=== PATIENT | female | born 1980 | race Caucasian/White ===

== ENCOUNTER 2017-02-07 11:56 | Emergency (ER) | payer MEDICARE, MEDICAID ==
[2015-01-06 12:42] VITALS: BMI 46.8
[~2017-02-07 11:56] MED LIST: CLINDAMAX TOPICAL; ERRIN0.35 MG PO; GEODON60 MG PO; LITHIUM CARBON300 MG PO; LOPID600 MG PO; NIASPAN500 MG PO; PAXIL20 MG PO
== END 2017-02-07 13:28 | disposition left against medical advice (07) ==
LOC: D.ER 11:56
DX: R51 Headache (principal)

== ENCOUNTER 2017-03-04 22:00 | Emergency (ER) | payer MEDICARE | END 2017-03-05 01:44 | disposition home or self-care (01) | LOC: D.ER 22:00 | DX: M94.262 Chondromalacia, left knee (principal); F17.200 Nicotine dependence, unspecified, uncomplicated; F31.9 Bipolar disorder, unspecified ==

== ENCOUNTER → 2017-06-26 09:37 | Outpatient (CLI) | payer SELFPAY ==
[2015-01-06 12:42] VITALS: BMI 46.8
--- NOTE | 2017-06-26 12:08 | NUR ---
Nutrition education for bariatric surgery: S: Pt states she was unable to lose weight after having her two children. Pt states she makes very poor food choices due to being on a very limited budget. However, pt did smoke until recently. Pt states she and her boyfreind buy mostly frozen burritos, canned chili and other highly processed foods because they are cheaper. Pt states she lost ~25# following a 1500 kcal diet but was unable to keep the weight off due to the cost of the food. Pt is taking anti-psychotic drugs which also can cause weight gain. Pt is drinking soda and some water. Pt does not exercise at this time. O: 36 year old female PMH: Fatty liver disease, asthma, OA of the knee, hypertryglecerimia, O2 dependent at night Ht: 5'6" Wt: 299# IBW: 130# +/-10% BMI: 48.3 A: Reviewed pre/post op diet progression. Discussed liquids between meals only; no carbonated drinks, no alcohol, no straws, no sweets or high fat foods; dumping syndrome; daily multivitamin mineral supplements; pouch stretching; stomach size; protein requirements and protein supplement guidelines. Reviewed sample menus for all diet phases. Provided pt with homework to start working on before surgery. Pt with good understanding of information provided. Pt with realistic expectations for weight loss. Pts goal weight post surgery is 170-200#. Pt verbalizes understanding of diet changes needed postprocedure to help with long-term weight loss success. However, pt may not be very motivated to make the necessary changes needed to be successful with long-term weight loss. RDN feels pts motivation for change is fair at best. P: Provided pt with printed diet information and RDN name and phone number. RDN will be available if needed. Thank you for the consult.
== END ==
LOC: D.FANS 09:37
DX: Z01.818 Encounter for other preprocedural examination (principal)

== ENCOUNTER → 2017-08-17 10:18 | Outpatient (CLI) | payer MEDICARE ==
[2015-01-06 12:42] VITALS: BMI 46.8
== END | disposition home or self-care (01) ==
LOC: D.RAD 10:18
DX: E66.01 Morbid (severe) obesity due to excess calories (principal)

== ENCOUNTER 2017-08-27 06:09 | Day surgery (SDC) | payer MEDICARE ==
[2017-08-27] MEDS ORDERED: GEODON20 MG PO (06:44)
[2017-08-27] MEDS ORDERED: HYDROXYZINE HCL50 MG PO (06:45)
[2017-08-27] MEDS ORDERED: CLARITIN 10 MG10 MG PO (06:46)
[2017-08-27] MEDS ORDERED: MUCINEX600 MG PO (06:46)
[2017-08-27] MEDS ORDERED: PREVACID30 MG PO (06:47)
[2017-08-27] MEDS ORDERED: SINGULAIR10 MG PO (06:47)
[2017-08-27] MEDS ORDERED: FIBER-TABS625 MG PO (06:48)
[2017-08-27 06:54] VITALS: BMI 31.3
[2017-08-27 07:08] LABS: BASOPHILS 0.2 % (0-2); HEMATOCRIT 37.4 % (36.0-48.0); HEMOGLOBIN 12.4 g/dL (12-16); IMMATURE GRANULOCYTES 0.7 % (0-5); LYMPHOCYTES 25.6 % (15-50); MCHC 33.2 g/dL (31.0-37.0); MCV 93.5 fL (80.0-100.0); MEAN PLATELET VOLUME 9.6 fL (7.4-10.4); MONOCYTES 6.3 % (2-11); NEUTROPHILS 64.2 % (40-80); PLATELET COUNT 470 10x3/uL (130-400); WBC 9.4 10x3/uL (4.8-10.8)
[2017-08-27 07:34] LABS: ALBUMIN 3.1 g/dL (3.4-5.0); ANION GAP 10.4 mmol/L (8-16); BILIRUBIN - DIRECT 0.05 mg/dL (0.00-0.30); BILIRUBIN - INDIRECT 0.21 mg/dL (0.00-1.00); BILIRUBIN - TOTAL 0.26 mg/dL (0.2-1.3); CALCIUM 9.2 mg/dL (8.5-10.1); CARBON DIOXIDE 28.6 mmol/L (21.0-32.0); CHOL - HDL RATIO 4.5 ratio (2.3-4.1); LDL-HDL RATIO 2.6 ratio (1.5-3.5); PROTEIN - SERUM 7.1 g/dL (6.4-8.2); T4 THYROXINE 6.7 ug/dL (4.7-13.3); THYROID STIMULATING HORMONE 2.26 uIU/mL (0.36-3.74)
[2017-08-27 07:56] LABS: APTT 31.3 SECONDS (22.8-39.4); INR 0.88 (0.85-1.17); PROTIME 11.7 SECONDS (11.6-15.0)
[2017-08-27 08:21] LABS: HELICOBACTER PYLORI IGG NEGATIVE (NEGATIVE)
--- NOTE | 2017-08-27 09:43 | NUR ---
IV D/C'D CATH INTACT. D/C INSTRUCTIONS EXPLAINED TO PT. VOICED UNDERSTANDING. COPIES OF ALL GIVEN, WELL F/U APPT WITH DR. MEREDITH 1017 @9:15
[2017-08-28 08:18] LABS: FOLATE (FOLIC ACID) - SERUM 12.4 ng/mL (>3.0)
[2017-10-26] MEDS ORDERED: MULTIPLE VITAMI1 TA1 PO (10:05)
== END 2017-08-27 09:50 | disposition home or self-care (01) ==
LOC: D.OPS 06:09
PROVIDERS: Surgery
DX: K21.0 Gastro-esophageal reflux disease with esophagitis (principal); K29.50 Unspecified chronic gastritis without bleeding; E66.9 Obesity, unspecified; Z68.42 Body mass index [BMI] 45.0-49.9, adult; E78.2 Mixed hyperlipidemia; G47.33 Obstructive sleep apnea (adult) (pediatric); Z01.812 Encounter for preprocedural laboratory examination

== ENCOUNTER → 2017-09-27 08:54 | Outpatient (CLI) | payer MEDICARE ==
[~2017-09-27 08:54] MED LIST changes: +CLARITIN 10 MG10 MG PO; +FIBER-TABS625 MG PO; +GEODON20 MG PO; +HYDROCODON-ACE1 EAC7 PO; +HYDROXYZINE HCL50 MG PO; +MUCINEX600 MG PO; +MULTIPLE VITAMI1 TA1 PO; +PREVACID30 MG PO; +SINGULAIR10 MG PO
== END | disposition home or self-care (01) ==
LOC: D.NM 09-20 11:30
DX: E66.01 Morbid (severe) obesity due to excess calories (principal)

== ENCOUNTER 2017-10-08 23:23 | Emergency (ER) | payer MEDICARE ==
[~2017-10-08 23:23] MED LIST changes: -HYDROCODON-ACE1 EAC7 PO; -MULTIPLE VITAMI1 TA1 PO
[2017-10-26] MEDS ORDERED: MULTIPLE VITAMI1 TA1 PO (10:05)
== END 2017-10-09 00:10 | disposition home or self-care (01) ==
LOC: D.ER 23:23
DX: L51.9 Erythema multiforme, unspecified (principal)

== ENCOUNTER 2017-10-29 06:29 | Inpatient (IN) | payer MEDICARE ==
[2017-10-26 11:05] LABS: HEMATOCRIT 39.2 % (36.0-48.0); HEMOGLOBIN 13.2 g/dL (12-16); MCH 29.3 pg (26.0-34.0); MCHC 33.7 g/dL (31.0-37.0); MCV 87.1 fL (80.0-100.0); MEAN PLATELET VOLUME 8.8 fL (7.4-10.4); RBC 4.5 10x6/uL (4.00-5.40); RDW 12.4 % (11.5-14.5); WBC 11.8 10x3/uL (4.8-10.8)
[2017-10-26 11:12] LABS: APTT 28.9 SECONDS (22.8-39.4); INR 0.88 (0.85-1.17); PROTIME 11.6 SECONDS (11.6-15.0)
[2017-10-26 11:17] LABS: ALBUMIN 3.3 g/dL (3.4-5.0); ANION GAP 10.4 mmol/L (8-16); BILIRUBIN - TOTAL 0.16 mg/dL (0.2-1.3); CALCIUM 9.1 mg/dL (8.5-10.1); CREATININE - SERUM 0.9 mg/dL (0.6-1.3); POTASSIUM - SERUM 4.4 mmol/L (3.5-5.1); PROTEIN - SERUM 7.7 g/dL (6.4-8.2)
[~2017-10-29] VITALS: Ht 167.6 cm; Wt 141.8 kg
[~2017-10-29 06:29] MED LIST changes: +MULTIPLE VITAMI1 TA1 PO
[2017-10-29 10:46] VITALS: BP 143/75; BMI 50.4
--- NOTE | 2017-10-29 16:27 | NUR ---
ASKED PT IS SHE IS HAVING ANY PAIN. PT VOICED "6/10" ON NUMERIC SCALE. I HAVE ALREADY GIVEN DEMERAL 25MG FOR SHIVERING, BUT IT ALSO HELPS PAIN RECEPTORS. PT OXGYEN SATURATION IS 93% ON 3L NC. I VOICED TO THE PATIENT THAT DUE TO HER OXYGEN SATURATION BEING LOWER THAN THE DESIRED 94%, THAT I WAS GOING TO ALLOW FOR HER TO WAKE UP MORE BEFORE I GIVE HER ANY PAINMEDICINE, BECASUSE IT CAN CAUSE HER TO BREATH SWALLOWER AND FURTHER CAUSE RESPIRTORY DEPRESSION. PT SHOOK HER HEAD YES THAT SHE UNDERSTOOD. WILL CONITNUE TO MONITOR PT OXYGEN SATURATION AND PAIN.
[2017-10-29 17:30] VITALS: BP 122/59
--- NOTE | 2017-10-29 17:30 | NUR ---
RECEIVED TO ROOM 2213 FROM RECOVERY ROOM VIA BED. ORIENTED TO ROOM AND CALL LIGHT SYSTEM. FAMILY IN ROOM. CALL LIGHT IN REACH. WILL CONTINUE WITH PLAN OF CARE.
--- NOTE | 2017-10-29 17:50 | NUR ---
MORPHINE ERECTION SHOP SUPERVISOR INITIATED WITH SETTINGS OF 12/05/09 PER MD ORDER. EXPLAINED TO PATIENT HOW TO USE ERECTION SHOP SUPERVISOR. VERBALIZED UNDERSTANDING. INSTRUCTED PATIENT TO TAKE 30 CC OF ORAL FLUIDS PER HOUR AND NOT TO USE STRAWS OR HAVE CARBONATED DRINKS. I ALSO EXPLAINED THIS TO THE FAMILY WELL. ALL VERBALIZED UNDERSTANDING. MEASURING CUP GIVEN TO PATIENT AT THIS TIME. CALL LIGHT IN REACH. WILL CONTINUE WITH PLAN OF CARE.
--- NOTE | 2017-10-29 18:39 | NUR ---
ASSESSMENT PER FLOW SHEET.PT WITHOUT DISTRESS.CALL LIGHT IN REACH
[2017-10-29 18:41] VITALS: BP 122/59; Ht 167.6 cm; Wt 141.8 kg
--- NOTE | 2017-10-29 18:57 | NUR ---
SCDs APPLIED TO BLE PER MD ORDER. INCENTIVE SPIROMETER GIVEN TO PATIENT AND INSTRUCTED ON USE WITH RETURN DEMONSTRATION. NO OTHER CHANGES IN INITIAL ASSESSMENT. CALL LIGHT IN REACH. WILL CONTINUE WITH PLAN OF CARE.
[2017-10-29 20:00] VITALS: BP 125/73
--- NOTE | 2017-10-29 20:33 | OP ---
PATIENT NAME: HAYLEY LUNA MEDICAL RECORD: [id number] :78 LOCATION:[facility] ADMISSION DATE:10/29/17 SURGEON: JOSUÉ MEREDITH MD DATE OF OPERATION: 10/29/2017 DATE OF OPERATION: 10/29/2017 SURGEON: Josué Meredith MD [employer] DEPUTY DIRECTOR SURGEON: Raj Wiggins MD PREOPERATIVE DIAGNOSES: 1. Morbid obesity. 2. Essential hypertension. 3. Mixed hyperlipidemia. 4. Body mass index 45-49.9. 5. Obstructive sleep apnea. 6. Gastroesophageal reflux disease. POSTOPERATIVE DIAGNOSES: 1. Morbid obesity. 2. Essential hypertension. 3. Mixed hyperlipidemia. 4. Body mass index 45-49.9. 5. Obstructive sleep apnea. 6. Gastroesophageal reflux disease. PROCEDURE PERFORMED: Laparoscopic vertical sleeve gastrectomy. ANESTHESIA: General. COMPLICATIONS: None. SPECIMENS: Partial gastrectomy. ESTIMATED BLOOD LOSS: 40 cc. Case is clean contaminated. OPERATIVE COURSE: After consent was obtained, the patient was taken to the operating room and placed in the supine position on the operating table. Next, general anesthesia was given via endotracheal intubation. Next a timeout was performed to confirm the correct patient and procedure. Local anesthetic was injected just above the umbilicus. A stab incision was made with 11-blade scalpel using an 11-mm bladeless optical trocar. The abdomen was entered under direct laparoscopic vision. Adequate pneumoperitoneum was achieved. The abdominal cavity was inspected. No evidence of bowel injury. No evidence of bleeding. At this time, the patient was placed in the steep reverse Trendelenburg position. All remaining trocars were then placed after the administration of local anesthetic under direct laparoscopic vision; 12-mm and 5-mm trocar in the right lateral quadrants, two 5-mm trocars in the left lateral quadrants, and Alesia liver retractor in the subxiphoid position. The Alesia liver retractor was used to elevate the left lobe of the liver, exposing the gastroesophageal junction. The pylorus was identified. Starting 6 cm proximal to pylorus, the greater curvature of the stomach was mobilized. The OPERATIVE REPORT [id number] HAYLEY LUNA short gastrics were taken with Harmonic scalpel to the level of the left sarah. Once this was complete, the 40-Chinese ViSiGi bougie was passed transorally. Once in the stomach, it was advanced to the pylorus and placed to suction along the lesser curvature of the stomach. At this time, the gastric sleeve was created using the linear cutting LESLIE stapler with gold load josué. The stapler was fired along the length of the 40-Chinese ViSiGi device, approximately 6 staple loads were used. Once complete, the partial gastrectomy specimen was placed in the left lateral quadrant. The staple line was imbricated using a 3-0 Stratafix suture. Next, a bowel clamp was placed across the first portion of the duodenum. The upper abdomen was filled with saline irrigation. The ViSiGi device was used to insufflate the stomach. There was no evidence of leak. At this time, all remaining irrigation was suctioned from the abdomen. ViSiGi was placed back to suction. Once suction was complete, the ViSiGi device was removed. The abdominal cavity was then copiously irrigated and suctioned, it was inspected. There was no evidence of bowel injury and no evidence of bleeding. At this time, the Alesia liver retractor was removed. The partial gastrectomy specimen was grasped with the tenaculum and removed through the 12-mm trocar site and sent for permanent pathology. The 12-mm trocar site and 11-mm trocar site were then closed using the Morales-Radha suture passer under direct laparoscopic vision with 0 Vicryl suture. At this time, again the abdominal cavity was inspected with no evidence of bowel injury and no evidence of bleeding. All remaining instruments were removed. The abdomen was desufflated. Trocars were removed. Skin was closed with 4-0 Monocryl, Mastisol and Steri-Strips. At the end of the case, all needle and instrument counts were correct. No complications occurred. The patient was extubated and transferred to the PACU in stable condition. TRANSINT:[id number] Voice Confirmation ID: [id number] DOCUMENT ID: [id number] JOSUÉ MEREDITH MD at 2033 CC: [id number] DICTATION DATE: 10/29/17 161 PSYCHOLOGICAL OPERATIONS: 10/29/17 [address] [facility] [address] [place] [address]
--- NOTE | 2017-10-29 22:32 | NUR ---
PRN ZOFRAN AND MYLICON DROPS ADMINISTERED AT THIS TIME FOR GAS PAINS. PT AMBULATED TO THE BATHROOM WITH SP[employer]ING GOODS SALES MANAGER ASSISTANCE. STATES "THAT'S ALL I CAN DO RIGHT NOW." CALL LIGHT IN REACH, WILL CONTINUE WITH PLAN OF CARE.
[2017-10-30 04:00] VITALS: BP 131/68
--- NOTE | 2017-10-30 05:17 | NUR ---
PT OBSERVED AMBULATING IN HALLWAY WITH COLOR BUFFER. MADE ONE LAP AROUND FLOOR. NO DISTRESS NOTED.
[2017-10-30 07:25] LABS: BASOPHILS 0.1 % (0-2); EOSINOPHILS 0.1 % (0-7); HEMATOCRIT 35.6 % (36.0-48.0); HEMOGLOBIN 11.6 g/dL (12-16); IMMATURE GRANULOCYTES 0.3 % (0-5); LYMPHOCYTES 9.5 % (15-50); MCH 29.4 pg (26.0-34.0); MCHC 32.6 g/dL (31.0-37.0); MCV 90.1 fL (80.0-100.0); MEAN PLATELET VOLUME 9.6 fL (7.4-10.4); MONOCYTES 5.4 % (2-11); NEUTROPHILS 84.6 % (40-80); PLATELET COUNT 469 10x3/uL (130-400); RBC 3.95 10x6/uL (4.00-5.40); RDW 13.3 % (11.5-14.5); WBC 19.4 10x3/uL (4.8-10.8)
[2017-10-30 07:46] LABS: ALBUMIN 2.8 g/dL (3.4-5.0); ALKALINE PHOSPHATASE 78 U/L (46-116); ALT (SGPT) 43 U/L (10-68); BILIRUBIN - TOTAL 0.35 mg/dL (0.2-1.3); CALC OSMOLALITY 273 mosm/kg (275-300); CALCIUM 8.6 mg/dL (8.5-10.1); CARBON DIOXIDE 28.3 mmol/L (21.0-32.0); CHLORIDE - SERUM 104 mmol/L (98-107); CREATININE - SERUM 0.7 mg/dL (0.6-1.3); GLUCOSE 119 mg/dL (74-106); PROTEIN - SERUM 6.5 g/dL (6.4-8.2); SODIUM 137 mmol/L (136-145); UREA NITROGEN 10 mg/dL (7-18); eGFR NON AFRICAN AMERICAN > 90 mL/min (90-120)
--- NOTE | 2017-10-30 08:01 | NUR ---
AWAKE AND ALERT. ORIENTED X3. NO C/O THIS AM. LUNGS ARE CLEAR BILATERALLY, NO COUGH NOTED. SKIN IS INTACT WITHOUT REDNESS EXCEPT 4 SMALL INSERTION SITES TO ABDOMEN WHICH ARE CLEAN AND DRY. IV TO RIGHT AC IS PATENT WITHOUT REDNESS AT ISNERTION SITE. DENIES NEEDS. REPORTS VOIDING WITHOUT DIFFICULTY. OFF UNIT AT THIS TIME VIA WC FOR PROCEDURE.
[2017-10-30] MEDS ORDERED: HYDROCODON-ACE1 EAC7 PO (09:52)
--- NOTE | 2017-10-30 11:30 | NUR ---
REQUESTED IV BE D/C. DONE WITH CATHETER INTACT.
--- NOTE | 2017-10-30 13:40 | NUR ---
DISCHARGED TO HOME AMBULATORY WITH FAMILY. DISCHARGE INSTRUCTIONS GIVEN BOTH VERBALLY AND WRITTEN. ALL QUESTIONS ANSWERED. PATIENT VERBALIZED UNDERSTANDING OF SAME. NEEDED PRESCRIPTIONS GIVEN TO PATIENT. ALL BELONGINGS WITH PATIENT.
--- NOTE | 2017-11-15 08:23 | DS ---
PATIENT:HAYLEY LUNA :78 MEDICAL RECORD: [id number] DISCHARGE SUMMARY ADMISSION DATE: 10/29/17 DISCHARGE DATE: 10/30/17 DATE OF ADMISSION: 10/29/2017 DATE OF DISCHARGE: 10/30/2017 SURGEON: Josué Meredith MD ADMITTING PHYSICIAN: Josué Meredith MD DISCHARGE PHYSICIAN: Josué Meredith MD ADMITTING DIAGNOSES: 1. Morbid obesity. 2. Body mass index 45-49.9. 3. Essential hypertension. 4. Mixed hyperlipidemia. 5. Obstructive sleep apnea. HOSPITAL COURSE: The patient was admitted to the hospital for an elective laparoscopic vertical sleeve gastrectomy, which she tolerated well. Postoperatively, she was transferred to the floor and started on bariatric phase I clear liquid diet. On postoperative day 1, she went for Gastrografin swallow, which was within normal limits. She was advanced to a bariatric phase II clear liquid diet. At the time of discharge, her pain was well controlled on oral pain medicine. She was ambulating independently and voiding without difficulty. FOLLOWUP: With Dr. Meredith in 2 weeks. DISCHARGE DIET: Bariatric phase II full liquid diet for 2 weeks. WOUND CARE: The patient may shower, soap and water to the wound daily. DISCHARGE CONDITION: Stable. ACTIVITY: As tolerated. No restrictions. DISCHARGE MEDICATIONS: Please see electronic medical record for full list of discharge medications. TRANSINT:[id number] Voice Confirmation ID: [id number] DOCUMENT ID: [id number] JOSUÉ MEREDITH MD at 0823 CC: [id number] DICTATION DATE: 11/14/17 1549 PHARMACY LABORATORY TECHNICIAN: 11/15/17 0701 DIS IN 10/30/17 [facility] [address] [place] [id number]
--- NOTE | 2017-11-22 13:26 | OP ---
PATIENT NAME: HAYLEY LUNA MEDICAL RECORD: [id number] :78 LOCATION:[facility] ADMISSION DATE:10/29/17 SURGEON: DOREEN SALAZAR MD DATE OF OPERATION: 10/29/2017 This is an computer assistant's note. I assisted Dr. Jose Angel Jones with laparoscopic sleeve gastrectomy for morbid obesity. I scrubbed in after the trocars had been placed. I was present for all the critical portions of the case. I assisted with retraction of the stomach. I took down some of the short gastrics with the Harmonic scalpel. I dissected up to the left sarah. Bleeding was controlled with the Harmonic scalpel. I assisted with retraction of the stomach during insertion of the ViSiGi device. I assisted with retraction of the stomach while Dr. Jones divided the stomach. I then assisted with hemostasis in the left upper quadrant. I assisted him with suture retraction and imbricating sutures along the staple line. I ran the camera. I irrigated and aspirated. I assisted with closure of some of the trocar sites. I was present until last skin sutures had been placed. TRANSINT:[id number] Voice Confirmation ID: [id number] DOCUMENT ID: [id number] DOREEN SALAZAR MD at 1326 CC: [id number] DICTATION DATE: 10/29/17 1615 CROP ROLLER: 10/29/17 1829 DIS IN 10/30/17 [facility] [address] [place] [id number]
== END 2017-10-30 13:40 | disposition home or self-care (01) | DRG 621 ==
LOC: D.SDCHOLD 06:29 → D.MS 17:19
PROVIDERS: Anesthesiology; ADMIT Surgery
PROC: 0DB64Z3 Excision of Stomach, Percutaneous Endoscopic Approach, Vertical (ICD-10-PCS; principal; 2017-10-29 12:00)
DX: E66.01 Morbid (severe) obesity due to excess calories (principal); Z68.42 Body mass index [BMI] 45.0-49.9, adult; I10 Essential (primary) hypertension; E78.2 Mixed hyperlipidemia; G47.33 Obstructive sleep apnea (adult) (pediatric); K21.9 Gastro-esophageal reflux disease without esophagitis

== ENCOUNTER 2017-11-11 01:45 | Emergency (ER) | payer MEDICARE ==
[2017-10-29 18:41] VITALS: BMI 50.4
[~2017-11-11 01:45] MED LIST changes: +HYDROCODON-ACE1 EAC7 PO
[2017-11-11 02:40] LABS: BASOPHILS 0.2 % (0-2); EOSINOPHILS 1.9 % (0-7); HEMATOCRIT 40.4 % (36.0-48.0); HEMOGLOBIN 13.8 g/dL (12-16); IMMATURE GRANULOCYTES 0.5 % (0-5); LYMPHOCYTES 21.3 % (15-50); MCH 29.6 pg (26.0-34.0); MCHC 34.2 g/dL (31.0-37.0); MCV 86.5 fL (80.0-100.0); MEAN PLATELET VOLUME 9.7 fL (7.4-10.4); MONOCYTES 6.3 % (2-11); NEUTROPHILS 69.8 % (40-80); PLATELET COUNT 538 10x3/uL (130-400); RBC 4.67 10x6/uL (4.00-5.40); RDW 13.1 % (11.5-14.5); WBC 15.1 10x3/uL (4.8-10.8)
[2017-11-11 03:02] LABS: CALC OSMOLALITY 273 mosm/kg (275-300); CALCIUM 9.5 mg/dL (8.5-10.1); CHLORIDE - SERUM 99 mmol/L (98-107); CREATININE - SERUM 0.8 mg/dL (0.6-1.3); GLUCOSE 89 mg/dL (74-106); POTASSIUM - SERUM 3.9 mmol/L (3.5-5.1); SODIUM 138 mmol/L (136-145); TROPONIN-I < 0.017 ng/mL (0.000-0.060); UREA NITROGEN 10 mg/dL (7-18); eGFR NON AFRICAN AMERICAN 85 mL/min (90-120)
[2017-11-11 04:40] LABS: HCG SERUM NEGATIVE (NEGATIVE)
== END 2017-11-11 05:39 | disposition home or self-care (01) ==
LOC: D.ER 01:45
PROVIDERS: Emergency Medicine
DX: J18.9 Pneumonia, unspecified organism (principal)

== ENCOUNTER 2018-02-13 20:28 | Emergency (ER) | payer MEDICARE ==
[2017-10-29 18:41] VITALS: BMI 50.4
== END 2018-02-13 23:33 | disposition home or self-care (01) ==
LOC: D.ER 20:28
DX: R11.0 Nausea (principal)